=== PATIENT | male | born 1995 | race American Indian/Alaskan Native ===

== ENCOUNTER 2016-10-17 06:07 | Emergency (ER) | payer MEDICAID ==
[2016-10-17 06:44] VITALS: BP 141/91
[2016-10-17 06:57] LABS: Basophils % (Auto) 0.4 % (0.0-1.8); Eosinophils % (Auto) 1.1 % (0.0-4.3); Hematocrit 42.5 % (35.5-45.6); Hemoglobin 13.9 gm/dl (11.8-15.2); Mean Corpuscular HGB Conc 33 % (32-34); Mean Corpuscular Hemoglobin 29 pg (28-32); Mean Corpuscular Volume 89 fl (84-94); Platelet Count 205 K/mm3 (140-440); Red Blood Count 4.79 M/mm3 (3.65-5.03); Red Cell Distribution Width 12.7 % (13.2-15.2); White Blood Count 6.9 K/mm3 (4.5-11.0)
[2016-10-17 07:09] LABS: Urine Drugs of Abuse Note Disclamer
[2016-10-17 07:13] LABS: Anion Gap 19 mmol/L; BUN/Creatinine Ratio 12.22; Blood Urea Nitrogen 11 mg/dL (9-20); Calcium 8.9 mg/dL (8.4-10.2); Carbon Dioxide 25 mmol/L (22-30); Chloride 104.9 mmol/L (98-107); Glucose 83 mg/dL (75-100); Potassium 4.3 mmol/L (3.6-5.0); Sodium 145 mmol/L (137-145)
[2016-10-17 07:39] LABS: Bilirubin,Urine NEG (Negative); Blood,Urine NEG (Negative); Ketones,Urine TR mg/dL (Negative); Leukocyte Esterase,Urine NEG (Negative); Mucus,Urine FEW /HPF; Nitrite,Urine NEG (Negative); Protein,Urine <15 mg/dL mg/dL (Negative); WBC,Urine < 1.0 /HPF (0.0-6.0)
== END 2016-10-17 08:15 | disposition left against medical advice (07) ==
LOC: EEVIPCON 06:07 → ED 06:07
DX: M25.562 Pain in left knee (principal); Z00.8 Encounter for other general examination; F17.200 Nicotine dependence, unspecified, uncomplicated; Z88.8 Allergy status to other drugs, medicaments and biological substances; Z53.21 Procedure and treatment not carried out due to patient leaving prior to being seen by health care provider
CPT/HCPCS: 36415; 80048; 80307; 81001; 85025; G0480; 80320

== ENCOUNTER 2016-10-18 00:34 | Emergency (ER) | payer MEDICAID ==
[2016-10-18 01:37] LABS: Basophils % (Auto) 0.4 % (0.0-1.8); Eosinophils % (Auto) 1.6 % (0.0-4.3); Hematocrit 41.4 % (35.5-45.6); Hemoglobin 13.6 gm/dl (11.8-15.2); Mean Corpuscular HGB Conc 33 % (32-34); Mean Corpuscular Hemoglobin 29 pg (28-32); Mean Corpuscular Volume 89 fl (84-94); Platelet Count 192 K/mm3 (140-440); Red Blood Count 4.68 M/mm3 (3.65-5.03); Red Cell Distribution Width 12.5 % (13.2-15.2); White Blood Count 7.4 K/mm3 (4.5-11.0)
[2016-10-18 01:46] LABS: Anion Gap 16 mmol/L; BUN/Creatinine Ratio 16.25; Blood Urea Nitrogen 13 mg/dL (9-20); Calcium 8.7 mg/dL (8.4-10.2); Carbon Dioxide 25 mmol/L (22-30); Chloride 106.4 mmol/L (98-107); Glucose 94 mg/dL (75-100); Sodium 143 mmol/L (137-145)
[2016-10-18 02:06] VITALS: BP 133/85
--- NOTE | 2016-10-22 07:05 | ED Elopement Review ---
ED Pt Elopement review - Results review Lab results: Laboratory Tests 10/18/16 10/18/16 10/18/16 01:16 01:16 01:16 WBC 7.4 RBC 4.68 Hgb 13.6 Hct 41.4 MCV 89 MCH 29 MCHC 33 RDW 12.5 L Plt Count 192 Lymph % (Auto) 22.9 [place] % (Auto) 15.7 H Eos % (Auto) 1.6 Baso % (Auto) 0.4 Lymph # 1.7 [place] # 1.2 H Eos # 0.1 Baso # 0.0 Seg Neutrophils % 59.4 Seg Neutrophils # 4.4 Sodium 143 Potassium 4.0 Chloride 106.4 Carbon Dioxide 25 Anion Gap 16 BUN 13 Creatinine 0.8 Estimated GFR > 60 BUN/Creatinine Ratio 16.25 Glucose 94 Calcium 8.7 Plasma/Serum Alcohol < 0.01 - Call Back decision Pt Call Back Decision: No action required
== END 2016-10-18 19:00 | disposition left against medical advice (07) ==
LOC: ED 00:34
DX: F29 Unspecified psychosis not due to a substance or known physiological condition (principal); Z53.21 Procedure and treatment not carried out due to patient leaving prior to being seen by health care provider
CPT/HCPCS: 36415; 80048; 85025; G0480; 80320

== ENCOUNTER 2016-10-24 02:54 | Emergency (ER) | payer MEDICAID ==
[2016-10-24 04:02] VITALS: BP 144/90
[2016-10-24 04:48] LABS: Basophils % (Auto) 0.4 % (0.0-1.8); Eosinophils % (Auto) 2.6 % (0.0-4.3); Hematocrit 43.1 % (35.5-45.6); Mean Corpuscular HGB Conc 33 % (32-34); Mean Corpuscular Hemoglobin 29 pg (28-32); Mean Corpuscular Volume 90 fl (84-94); Platelet Count 245 K/mm3 (140-440); Red Blood Count 4.81 M/mm3 (3.65-5.03); Red Cell Distribution Width 13.2 % (13.2-15.2); White Blood Count 6.6 K/mm3 (4.5-11.0)
[2016-10-24 04:49] LABS: Anion Gap 19 mmol/L; BUN/Creatinine Ratio 17.14; Blood Urea Nitrogen 12 mg/dL (9-20); Calcium 9.2 mg/dL (8.4-10.2); Carbon Dioxide 23 mmol/L (22-30); Chloride 103.5 mmol/L (98-107); Glucose 88 mg/dL (75-100); Potassium 3.8 mmol/L (3.6-5.0); Sodium 142 mmol/L (137-145)
--- NOTE | 2016-10-29 19:33 | ED Elopement Review ---
ED Pt Elopement review - Results review Lab results: Laboratory Tests 10/24/16 10/24/16 10/24/16 04:14 04:14 04:14 WBC 6.6 RBC 4.81 Hgb 14.0 Hct 43.1 MCV 90 MCH 29 MCHC 33 RDW 13.2 Plt Count 245 Lymph % (Auto) 26.4 [place] % (Auto) 11.6 H Eos % (Auto) 2.6 Baso % (Auto) 0.4 Lymph # 1.8 [place] # 0.8 Eos # 0.2 Baso # 0.0 Seg Neutrophils % 59.0 Seg Neutrophils # 3.9 Sodium 142 Potassium 3.8 Chloride 103.5 Carbon Dioxide 23 Anion Gap 19 BUN 12 Creatinine 0.7 L Estimated GFR > 60 BUN/Creatinine Ratio 17.14 Glucose 88 Calcium 9.2 Plasma/Serum Alcohol < 0.01 - Call Back decision Pt Call Back Decision: No action required
== END 2016-10-24 04:15 | disposition left against medical advice (07) ==
LOC: ED 02:54
DX: R51 Headache (principal); Z53.21 Procedure and treatment not carried out due to patient leaving prior to being seen by health care provider
CPT/HCPCS: 36415; 80048; 85025; G0480; 80320

== ENCOUNTER 2016-10-29 16:57 | Emergency (ER) | payer MEDICAID ==
[2016-10-29 18:16] LABS: Basophils % (Auto) 0.4 % (0.0-1.8); Eosinophils % (Auto) 2.7 % (0.0-4.3); Hematocrit 42.3 % (35.5-45.6); Hemoglobin 13.9 gm/dl (11.8-15.2); Mean Corpuscular HGB Conc 33 % (32-34); Mean Corpuscular Hemoglobin 30 pg (28-32); Mean Corpuscular Volume 91 fl (84-94); Platelet Count 244 K/mm3 (140-440); Red Blood Count 4.64 M/mm3 (3.65-5.03); Red Cell Distribution Width 13.2 % (13.2-15.2); White Blood Count 7.3 K/mm3 (4.5-11.0)
[2016-10-29 18:17] LABS: Urine Drugs of Abuse Note Disclamer
[2016-10-29 18:32] LABS: Bilirubin,Urine NEG (Negative); Blood,Urine NEG (Negative); Ketones,Urine NEG (Negative); Leukocyte Esterase,Urine NEG (Negative); Mucus,Urine FEW /HPF; Nitrite,Urine NEG (Negative); Protein,Urine <15 mg/dL mg/dL (Negative); Urobilinogen,Urine < 2.0 mg/dL (<2.0); WBC,Urine < 1.0 /HPF (0.0-6.0)
[2016-10-29 18:33] LABS: Anion Gap 18 mmol/L; BUN/Creatinine Ratio 13.75; Blood Urea Nitrogen 11 mg/dL (9-20); Calcium 9.3 mg/dL (8.4-10.2); Carbon Dioxide 25 mmol/L (22-30); Chloride 101.2 mmol/L (98-107); Glucose 124 mg/dL (75-100); Potassium 3.8 mmol/L (3.6-5.0); Sodium 140 mmol/L (137-145)
--- NOTE | 2016-10-29 23:52 | Emergency Department Report ---
ED General Adult HPI - General Chief complaint: Headache Stated complaint: ELSA EVAL Time Seen by Provider: 10/29/16 23:44 Source: patient, RN notes reviewed, old records reviewed Mode of arrival: Ambulatory Limitations: No Limitations - History of Present Illness Initial comments: This is a 21-year-old male. He is previously known to me. As per triage documentation, the patient has been complaining of a headache all day, denies vomiting, denies fever, initially noted to be awake, calm, ambulatory, answering questions. His caregiver indicated that the patient has been sexually aggressive, masturbating in front of every one, running to the committed a naked, touching staff and other residents. No exacerbating factors or relieving factors have been described. As per the ER nurse documentation: Pt ambulated to ER H-25 from waiting room c/o headache for 2 days, no c/o of N/V , AAOx4, asking for something to eat, informed him he would have to wait till dr evaluates him. When I go to evaluate the patient he is sleeping. He does not answer questions. When I lift up his left arm, he allows it to drop down slowly, avoiding contact with head and face. There is no indication of homicidality or suicide. -: unknown Severity scale (0 -10): 6 Quality: other (per hpi) Consistency: other (per hpi) Improves with: other (per hpi) Worsens with: other (per hpi) Associated Symptoms: headaches - Related Data Home Medications Medication Instructions Recorded Confirmed Last Taken levETIRAcetam [Keppra TAB] 500 mg PO BID 10/30/16 10/30/16 1 Day Ago 500 Allergies Allergy/AdvReac Type Severity Reaction Status Date / Time haloperidol [From Haldol] Allergy Unknown Verified 10/29/16 17:15 haloperidol lactate Allergy Unknown Verified 10/29/16 17:15 [From Haldol] ED Review of Systems ROS: Stated complaint: MH EVAL Other details as noted in HPI Comment: per hpi ED Past Medical Hx - Past Medical History Hx Seizures: Yes Hx Psychiatric Treatment: Yes (bipolar /SCHIZOPHRENIA / ADHD) - Surgical History Past Surgical History?: No - Social History Smoking Status: Never Smoker Substance Use Type: None - Medications Home Medications: Home Medications Medication Instructions Recorded Confirmed Last Taken Type levETIRAcetam [Keppra TAB] 500 mg PO BID 10/30/16 10/30/16 1 Day Ago History 500 ED Physical Exam - General General appearance: in no apparent distress - Head Head exam: Present: atraumatic, normocephalic - Eye Eye exam: Present: normal appearance, EOMI - ENT ENT exam: Present: normal exam, normal orophraynx, mucous membranes moist, normal external ear exam - Neck Neck exam: Present: normal inspection, full ROM. Absent: tenderness, meningismus - Respiratory Respiratory exam: Present: normal lung sounds bilaterally. Absent: respiratory distress, wheezes, rales, rhonchi, stridor, chest wall tenderness, accessory muscle use, decreased breath sounds, prolonged expiratory - Cardiovascular Cardiovascular Exam: Present: regular rate, normal rhythm, normal heart sounds. Absent: bradycardia, tachycardia, irregular rhythm, systolic murmur, diastolic murmur, rubs, gallop - GI/Abdominal GI/Abdominal exam: Present: soft, normal bowel sounds. Absent: distended, tenderness, guarding, rebound, rigid, pulsatile mass - Rectal Rectal exam: Present: deferred - Extremities Exam Extremities exam: Present: normal inspection, full ROM, normal capillary refill , other (no clonus. compartments are soft). Absent: pedal edema, joint swelling , calf tenderness - Back Exam Back exam: Present: normal inspection. Absent: tenderness, CVA tenderness (R), CVA tenderness (L), muscle spasm, paraspinal tenderness, vertebral tenderness - Neurological Exam Neurological exam: Present: other (patient is noted by nursing staff to be walking, awake, alert, oriented) - Psychiatric Psychiatric exam: Present: flat affect - Skin Skin exam: Present: warm, dry, intact, normal color. Absent: rash ED Course Vital Signs 10/29/16 10/29/16 10/29/16 17:19 22:23 22:24 Temperature 98.7 F Pulse Rate 64 72 Respiratory 15 18 18 Rate Blood Pressure 114/69 Blood Pressure 122/74 [Left] O2 Sat by Pulse 100 98 Oximetry 10/30/16 00:00 Temperature 99.4 F Pulse Rate 70 Respiratory 18 Rate Blood Pressure Blood Pressure 123/68 [Left] O2 Sat by Pulse 99 Oximetry - Reevaluation(s) Reevaluation #1: 10/30/16 00:37 differential diagnosis: Migraine headache, tension headache, cluster headache, mood disorder, factitious disorder assessment and plan: 21-year-old male with reported complaint of headache. He is afebrile with reassuring vital signs. When I evaluate the patient, he will not answer my questions. He localizes painful stimuli. He is protecting his airway. I suspect that the patient is feigning somnolence. His laboratory studies were unremarkable. A noncontrast CT scan of the brain is unremarkable. No indication for homicidality or suicidality. Given hypersexual behavior, I have contacted mental health/crisis to assist in placement. Reevaluation #2: 10/30/16 01:[address] scan of the brain is negative. The patient is noted to be moving 4 extremities. He still will not answer my questions, and he will not answer the questions of the mental health counselor. I think that this is mostly behavioral, especially given what is documented in triage and by the nurse, however given his hypersexual behavior, there may be a psychotic component. At this point in time, the patient will be placed on a 1013. The crisis counselor is informed. I don't believe there is any medical contraindication to psychiatric admission/ evaluation. However, if psychiatry feels the patient can be safely discharged from a self-care perspective/psychiatry standpoint, and this can be coordinated with his outpatient detention, I think this would be reasonable plan as well. Reevaluation #3: 10/30/16 05:[address] scan of the brain is negative. At one point I did witness the patient walking up and go to the bathroom. I went to go talk to him. He denied headache, neck pain, chest pain, abdominal pain and shortness of breath me. He asked to eat. He then went to sleep. He would not answer any other questions. ED Medical Decision Making - Lab Data Result diagrams: 10/29/16 18:03 10/29/16 18:03 Vital Signs 10/29/16 10/29/16 10/29/16 17:19 22:23 22:24 Temperature 98.7 F Pulse Rate 64 72 Respiratory 15 18 18 Rate Blood Pressure 114/69 Blood Pressure 122/74 [Left] O2 Sat by Pulse 100 98 Oximetry 10/30/16 00:00 Temperature 99.4 F Pulse Rate 70 Respiratory 18 Rate Blood Pressure Blood Pressure 123/68 [Left] O2 Sat by Pulse 99 Oximetry Labs 10/29/16 10/29/16 10/29/16 18:03 18:03 18:03 WBC 7.3 RBC 4.64 Hgb 13.9 Hct 42.3 MCV 91 MCH 30 MCHC 33 RDW 13.2 Plt Count 244 Lymph % (Auto) 19.6 [place] % (Auto) 7.1 Eos % (Auto) 2.7 Baso % (Auto) 0.4 Lymph # 1.4 [place] # 0.5 Eos # 0.2 Baso # 0.0 Seg Neutrophils % 70.2 H Seg Neutrophils # 5.1 Carboxyhemoglobin Sodium 140 Potassium 3.8 Chloride 101.2 Carbon Dioxide 25 Anion Gap 18 BUN 11 Creatinine 0.8 Estimated GFR > 60 BUN/Creatinine Ratio 13.75 Glucose 124 H Calcium 9.3 Urine Color Urine Turbidity Urine pH Ur Specific [place] Urine Protein Urine Glucose (UA) Urine Ketones Urine Blood Urine Nitrite Urine Bilirubin Urine Urobilinogen Ur Leukocyte Esterase Urine WBC (Auto) Urine RBC (Auto) Urine Mucus Urine Opiates Screen Urine Methadone Screen Ur Barbiturates Screen Ur Phencyclidine Scrn Ur Amphetamines Screen U Benzodiazepines Scrn Urine Cocaine Screen U Marijuana (THC) Screen Drugs of Abuse Note Plasma/Serum Alcohol < 0.01 10/29/16 10/29/16 10/30/16 18:11 18:11 00:04 WBC RBC Hgb Hct MCV MCH MCHC RDW Plt Count Lymph % (Auto) [place] % (Auto) Eos % (Auto) Baso % (Auto) Lymph # [place] # Eos # Baso # Seg Neutrophils % Seg Neutrophils # Carboxyhemoglobin 4.1 Sodium Potassium Chloride Carbon Dioxide Anion Gap BUN Creatinine Estimated GFR BUN/Creatinine Ratio Glucose Calcium Urine Color Yellow Urine Turbidity Clear Urine pH 6.0 Ur Specific [place] 1.026 Urine Protein <15 mg/dl Urine Glucose (UA) Neg Urine Ketones Neg Urine Blood Neg Urine Nitrite Neg Urine Bilirubin Neg Urine Urobilinogen < 2.0 Ur Leukocyte Esterase Neg Urine WBC (Auto) < 1.0 Urine RBC (Auto) 11.0 Urine Mucus Few Urine Opiates Screen Presumptive negative Urine Methadone Screen Presumptive negative Ur Barbiturates Screen Presumptive positive Ur Phencyclidine Scrn Presumptive negative Ur Amphetamines Screen Presumptive negative U Benzodiazepines Scrn Presumptive negative Urine Cocaine Screen Presumptive negative U Marijuana (THC) Screen Presumptive positive Drugs of Abuse Note Disclamer Plasma/Serum Alcohol - EKG Data -: EKG Interpreted by Ga Rate: normal - EKG Data When compared to previous EKG there are: no significant change Interpretation: no acute changes, normal EKG 10/30/16 00:38 Normal sinus, 67 beats per minute, normal intervals, normal axis, normal neurologically consistent with STEMI, motion artifact noted, appears unchanged when compared to prior EKG from 2010. - Radiology Data Radiology results: report reviewed Noncontrast CT scan of the brain is negative Critical care attestation.: If time is entered above; I have spent that time in minutes in the direct care of this critically ill patient, excluding procedure time. ED Disposition Condition: Stable Referrals: PRIMARY CARE, [Primary Care Provider] - 3-5 Days
--- NOTE | 2016-10-30 02:15 | Cat Scan Report ---
FINAL REPORT PROCEDURE: CT HEAD/BRAIN WO CON TECHNIQUE: Computerized tomography of the head was performed without contrast material. HISTORY: headache COMPARISON: No prior studies are available for comparison. FINDINGS: Skull and scalp: Normal. Paranasal sinuses: Normal. Ventricles and subarachnoid spaces: Normal. Cerebrum: No evidence of hemorrhage, acute infarction or mass . Cerebellum and brainstem: No evidence of hemorrhage, acute infarction or mass. Vasculature: Normal. Comments: None. IMPRESSION: Normal Examination
[2016-10-30 10:29] VITALS: BP 140/80
--- NOTE | 2016-10-30 11:24 | Consultation ---
History of Present Illness - Reason for Consult Consult date: 10/30/16 Reason for consult: Mental Health Evaluation Requesting physician: RAFAEL GOLD - Chief Complaint Chief complaint: I don't know" - History of Present Psychiatric Illness This is a 21-year-old AA male presenting to [facility] for sexually aggressive behavior, masturbating, running around naked, and touching staff/residents at his [facility]. Today patient is calm with a tangential thought process. He stated that "they say I was naked" at the [facility], he denies that occurrence. He would stare at me when asked to elaborate more about what happened at [facility]. When he would respond to my questions, he stated "I don' t know" multiple times. He did state that he take Risperdal and Keppra currently. No gestures of SI/HI's and AVH's. Per staff, no distress or inappropriate behavior overnight. Patient stated he ran out of medications. Medications and Allergies Allergies Allergy/AdvReac Type Severity Reaction Status Date / Time haloperidol [From Haldol] Allergy Unknown Verified 10/29/16 17:15 haloperidol lactate Allergy Unknown Verified 10/29/16 17:15 [From Haldol] Home Medications Medication Instructions Recorded Confirmed Last Taken Type levETIRAcetam [Keppra TAB] 500 mg PO BID 10/30/16 10/30/16 1 Day Ago History 500 Past psychiatric history - Past Medical History Past Medical History: other (unable to obtain) Past Surgical History: Other (unable to obtain) - past Psychiatric treatment and history Psych: Bipolar, Schizophrenia psychiatric treatment history: "[facility]" for inpatient. Denies a fam hx of psy. Mental Status Exam - Vital signs Last Vital Signs Temp 98.3 F 10/30/16 10:28 Pulse 59 L 10/30/16 10:28 Resp 18 10/30/16 10:28 BP 140/80 10/30/16 10:28 Pulse Ox 100 10/30/16 10:28 - Exam Narrative exam: ROS (+) psychosis, (+) disorganized MSE: Appearance: calm, cooperative Behavior: good eye contact Speech: regular rate and tone Mood: "I don't know" Affect: mood congruent Thought Process: tangential Thought Content: denies SI/HI's and AVH's Motor Activity: ambulatory Cognition: a/o x2 Insight: poor Judgment: poor Results Result Diagrams: 10/29/16 18:03 10/29/16 18:03 Abnormal lab results 10/29/16 10/29/16 10/30/16 Range/Units 18:03 18:03 00:04 Seg Neutrophils % 70.2 H (40.0-70.0) % Glucose 124 H (75-100) mg/dL Total Creatine Kinase 522 H (55-170) units/L Salicylates (2.8-20.0) mg/dL 10/30/16 Range/Units 00:04 Seg Neutrophils % (40.0-70.0) % Glucose (75-100) mg/dL Total Creatine Kinase (55-170) units/L Salicylates < 0.3 L (2.8-20.0) mg/dL All other labs normal. Assessment and Plan Assessment and plan: Impression: Unspecified Psychotic DO. This is a 21-year-old AA male presenting to [facility] for sexually aggressive behavior, masturbating, running around naked, and touching staff/residents at his [facility]. Today patient is calm but with a tangential thought process. He stated that "they say I was naked" at the [facility], he denies that occurrence. He would stare at me when asked to elaborate more about what happened at [facility]. Patient positive for barbiturates and marijuana. DD: Schizophrenia, R/O bipolar Recommendation/Plan: Continue 1013 with placement to inpatient psy services. Start Risperdal 1 mg PO HS for psychosis and Cogentin 0.5 mg PO HS for EPS prevention.
[2016-10-30] MEDS ORDERED: COGENTIN PO SCH (22:00)
[2016-10-30] MEDS ORDERED: RisperDAL PO SCH (22:00)
== END 2016-10-30 21:16 ==
LOC: ED 16:57
DX: R51 Headache (principal); F52.8 Other sexual dysfunction not due to a substance or known physiological condition; F20.9 Schizophrenia, unspecified; F31.9 Bipolar disorder, unspecified; F90.9 Attention-deficit hyperactivity disorder, unspecified type; Z88.8 Allergy status to other drugs, medicaments and biological substances
CPT/HCPCS: 36415; 70450; 80048; 80307; 81001; 82375; 82550; 83735; 84443; 85025; 93005; 93010; 99285; G0480; 80320

== ENCOUNTER 2017-05-13 18:27 | Emergency (ER) | payer MEDICAID | END 2017-05-13 18:50 | disposition left against medical advice (07) | LOC: ED 18:27 → EEVIPCON 18:27 → ED 18:50 | DX: Z53.21 Procedure and treatment not carried out due to patient leaving prior to being seen by health care provider (principal) ==

== ENCOUNTER 2017-05-14 03:41 | Emergency (ER) | payer MEDICAID ==
[2017-05-14 04:57] LABS: Basophils % (Auto) 0.3 % (0.0-1.8); Eosinophils % (Auto) 0.9 % (0.0-4.3); Hematocrit 43.1 % (35.5-45.6); Hemoglobin 14.6 gm/dl (11.8-15.2); Mean Corpuscular HGB Conc 34 % (32-34); Mean Corpuscular Hemoglobin 30 pg (28-32); Mean Corpuscular Volume 89 fl (84-94); Platelet Count 215 K/mm3 (140-440); Red Blood Count 4.84 M/mm3 (3.65-5.03); Red Cell Distribution Width 12.6 % (13.2-15.2); White Blood Count 7.1 K/mm3 (4.5-11.0)
[2017-05-14 05:01] LABS: Urine Drugs of Abuse Note Disclamer
[2017-05-14 05:08] LABS: Bilirubin,Urine NEG (Negative); Blood,Urine NEG (Negative); Ketones,Urine 20 mg/dL (Negative); Leukocyte Esterase,Urine NEG (Negative); Nitrite,Urine NEG (Negative); Protein,Urine <15 mg/dL mg/dL (Negative); Urobilinogen,Urine < 2.0 mg/dL (<2.0)
[2017-05-14 05:20] LABS: Anion Gap 23 mmol/L; BUN/Creatinine Ratio 10; Blood Urea Nitrogen 8 mg/dL (9-20); Calcium 9.3 mg/dL (8.4-10.2); Carbon Dioxide 22 mmol/L (22-30); Chloride 100.4 mmol/L (98-107); Glucose 86 mg/dL (75-100); Sodium 141 mmol/L (137-145)
[2017-05-14] MEDS ORDERED: ATIVAN IM PRN (06:42)
--- NOTE | 2017-05-14 06:42 | Emergency Department Report ---
ED General Adult HPI - General Chief complaint: Psych Stated complaint: PSYCH, NEEDS MEDICATION Time Seen by Provider: 05/14/17 06:35 Source: patient, RN notes reviewed, old records reviewed Mode of arrival: Ambulatory Limitations: Other (patient is disorganized. Patient is laughing uncontrollably.) - History of Present Illness Initial comments: This is a 22-year-old male whom I have evaluated in the past. Patient has a past history of unspecified psychotic disorder, presenting to the ER today with a triage complaint of "patient very anxious, repeats asked questions then burst out and left her after every question and states she has been off of prescriptions for 2-3 months denies homicidal and suicidal ideations , presented night and refused triage, return this morning." The patient cannot further elaborate on his symptoms. He cannot describe exacerbating or relieving factors. He denies headache, neck pain, chest pain, abdominal pain, shortness of breath, the patient will not answer questions about access to guns or firearms. -: unknown Consistency: constant Improves with: none Worsens with: none Associated Symptoms: denies other symptoms - Related Data Home Medications Medication Instructions Recorded Confirmed Last Taken levETIRAcetam [Keppra TAB] 500 mg PO BID 10/30/16 10/30/16 1 Day Ago ~10/29/16 500 Allergies Allergy/AdvReac Type Severity Reaction Status Date / Time haloperidol [From Haldol] Allergy Unknown Verified 10/29/16 17:15 haloperidol lactate Allergy Unknown Verified 10/29/16 17:15 [From Haldol] ED Review of Systems ROS: Stated complaint: PSYCH, NEEDS MEDICATION Other details as noted in HPI Comment: Unobtainable due to pts medical conditions Constitutional: denies: fever Cardiovascular: denies: chest pain Gastrointestinal: denies: abdominal pain Musculoskeletal: denies: back pain Neurological: denies: weakness Psychiatric: as per HPI ED Past Medical Hx - Past Medical History Previous Medical History?: Yes Hx Seizures: Yes Hx Psychiatric Treatment: Yes (bipolar /SCHIZOPHRENIA / ADHD) - Surgical History Past Surgical History?: No - Social History Smoking Status: Current Every Day Smoker Substance Use Type: Alcohol, Cocaine, Marijuana - Medications Home Medications: Home Medications Medication Instructions Recorded Confirmed Last Taken Type levETIRAcetam [Keppra TAB] 500 mg PO BID 10/30/16 10/30/16 1 Day Ago History ~10/29/16 500 ED Physical Exam - General Limitations: Other (patient laughing, poor historian) General appearance: alert, in no apparent distress - Head Head exam: Present: atraumatic, normocephalic - Eye Eye exam: Present: normal appearance, EOMI, other (visual acuity intact to finger counting, color perception, reading at a close distance). Absent: nystagmus - ENT ENT exam: Present: normal exam, normal orophraynx, mucous membranes moist, normal external ear exam - Neck Neck exam: Present: normal inspection, full ROM - Respiratory Respiratory exam: Present: normal lung sounds bilaterally. Absent: respiratory distress - Cardiovascular Cardiovascular Exam: Present: regular rate, normal rhythm, normal heart sounds. Absent: systolic murmur, diastolic murmur, rubs, gallop - GI/Abdominal GI/Abdominal exam: Present: soft, normal bowel sounds. Absent: distended, tenderness, guarding, rebound, rigid, pulsatile mass - Rectal Rectal exam: Present: deferred - Extremities Exam Extremities exam: Present: normal inspection, full ROM. Absent: pedal edema, calf tenderness - Back Exam Back exam: Present: normal inspection, full ROM. Absent: paraspinal tenderness , vertebral tenderness - Neurological Exam Neurological exam: Present: alert, CN II-XII intact, normal gait, other ( Extraocular movements intact. Tongue midline. No facial droop. Facial sensation intact to light touch in the V1, V2, V3 distribution bilaterally. 5 and 5 strength in 4 extremities.. Sensation is intact to light touch in 4 extremities.). Absent: motor sensory deficit - Psychiatric Psychiatric exam: Present: normal affect, agitated. Absent: homicidal ideation - Skin Skin exam: Present: warm, dry, intact, normal color. Absent: rash ED Course Vital Signs 05/14/17 03:46 Temperature 97.7 F Pulse Rate 92 H Respiratory 18 Rate Blood Pressure 148/91 O2 Sat by Pulse 98 Oximetry - Reevaluation(s) Reevaluation #1: 05/14/17 08:41 Differential diagnosis, including but not limited to: Psychosis, myositis, mood disorder, nonspecific drug abuse Assessment and plan: 22-year-old male who is disorganized, laughing, clearly unable to take care of himself, appears to be psychotic. He requires a 1013 for this reason. No indication of trauma. A noncontrast CT scan of the brain is negative. Patient is placed on a 1013. Laboratory studies so far unremarkable with the exception of elevated creatinine kinase. This will decrease with oral hydration and IV fluids. He does not meet the definition criteria of rhabdomyolysis. Patient attempted to run away, he did not respond to chemical therapy, he did not respond to verbal de-escalation techniques or Show of force. Therefore, for his safety and for staff safety he requires seclusion. He will also be given Geodon. Reevaluation #2: 05/14/17 09:15 Serum toxicology studies unremarkable. At this point in time, there does not appear to be an immediate medical contraindication to psychiatric admission/ evaluation and consultation. The crisis team has been informed. ED Medical Decision Making - Lab Data Result diagrams: 05/14/17 04:36 05/14/17 04:36 Vital Signs 05/14/17 03:46 Temperature 97.7 F Pulse Rate 92 H Respiratory 18 Rate Blood Pressure 148/91 O2 Sat by Pulse 98 Oximetry Lab Results 05/14/17 05/14/17 05/14/17 Range/Units 04:36 04:36 04:36 WBC 7.1 (4.5-11.0) K/mm3 RBC 4.84 (3.65-5.03) M/mm3 Hgb 14.6 (11.8-15.2) gm/dl Hct 43.1 (35.5-45.6) % MCV 89 (84-94) fl MCH 30 (28-32) pg MCHC 34 (32-34) % RDW 12.6 L (13.2-15.2) % Plt Count 215 (140-440) K/mm3 Lymph % (Auto) 20.4 (13.4-35.0) % [place] % (Auto) 10.7 H (0.0-7.3) % Eos % (Auto) 0.9 (0.0-4.3) % Baso % (Auto) 0.3 (0.0-1.8) % Lymph # 1.4 (1.2-5.4) K/mm3 [place] # 0.8 (0.0-0.8) K/mm3 Eos # 0.1 (0.0-0.4) K/mm3 Baso # 0.0 (0.0-0.1) K/mm3 Seg Neutrophils % 67.7 (40.0-70.0) % Seg Neutrophils # 4.8 (1.8-7.7) K/mm3 Sodium 141 (137-145) mmol/L Potassium 4.0 (3.6-5.0) mmol/L Chloride 100.4 (98-107) mmol/L Carbon Dioxide 22 (22-30) mmol/L Anion Gap 23 mmol/L BUN 8 L (9-20) mg/dL Creatinine 0.8 (0.8-1.5) mg/dL Estimated GFR > 60 ml/min BUN/Creatinine Ratio 10 % Glucose 86 (75-100) mg/dL Calcium 9.3 (8.4-10.2) mg/dL Total Creatine Kinase (55-170) units/L Urine Color (Yellow) Urine Turbidity (Clear) Urine pH (5.0-7.0) Ur Specific [place] (1.003-1.030) Urine Protein (Negative) mg/dL Urine Glucose (UA) (Negative) mg/dL Urine Ketones (Negative) mg/dL Urine Blood (Negative) Urine Nitrite (Negative) Urine Bilirubin (Negative) Urine Urobilinogen (<2.0) mg/dL Ur Leukocyte Esterase (Negative) Urine WBC (Auto) (0.0-6.0) /HPF Urine RBC (Auto) (0.0-6.0) /HPF Urine Opiates Screen Urine Methadone Screen Ur Barbiturates Screen Ur Phencyclidine Scrn Ur Amphetamines Screen U Benzodiazepines Scrn Urine Cocaine Screen U Marijuana (THC) Screen Drugs of Abuse Note Plasma/Serum Alcohol < 0.01 (0-0.07) gm% 05/14/17 05/14/17 05/14/17 Range/Units 04:36 04:55 04:55 WBC (4.5-11.0) K/mm3 RBC (3.65-5.03) M/mm3 Hgb (11.8-15.2) gm/dl Hct (35.5-45.6) % MCV (84-94) fl MCH (28-32) pg MCHC (32-34) % RDW (13.2-15.2) % Plt Count (140-440) K/mm3 Lymph % (Auto) (13.4-35.0) % [place] % (Auto) (0.0-7.3) % Eos % (Auto) (0.0-4.3) % Baso % (Auto) (0.0-1.8) % Lymph # (1.2-5.4) K/mm3 [place] # (0.0-0.8) K/mm3 Eos # (0.0-0.4) K/mm3 Baso # (0.0-0.1) K/mm3 Seg Neutrophils % (40.0-70.0) % Seg Neutrophils # (1.8-7.7) K/mm3 Sodium (137-145) mmol/L Potassium (3.6-5.0) mmol/L Chloride (98-107) mmol/L Carbon Dioxide (22-30) mmol/L Anion Gap mmol/L BUN (9-20) mg/dL Creatinine (0.8-1.5) mg/dL Estimated GFR ml/min BUN/Creatinine Ratio % Glucose (75-100) mg/dL Calcium (8.4-10.2) mg/dL Total Creatine Kinase 1446 H (55-170) units/L Urine Color Yellow (Yellow) Urine Turbidity Clear (Clear) Urine pH 5.0 (5.0-7.0) Ur Specific [place] 1.024 (1.003-1.030) Urine Protein <15 mg/dl (Negative) mg/dL Urine Glucose (UA) Neg (Negative) mg/dL Urine Ketones 20 (Negative) mg/dL Urine Blood Neg (Negative) Urine Nitrite Neg (Negative) Urine Bilirubin Neg (Negative) Urine Urobilinogen < 2.0 (<2.0) mg/dL Ur Leukocyte Esterase Neg (Negative) Urine WBC (Auto) 1.0 (0.0-6.0) /HPF Urine RBC (Auto) 1.0 (0.0-6.0) /HPF Urine Opiates Screen Presumptive negative Urine Methadone Screen Presumptive negative Ur Barbiturates Screen Presumptive negative Ur Phencyclidine Scrn Presumptive negative Ur Amphetamines Screen Presumptive negative U Benzodiazepines Scrn Presumptive negative Urine Cocaine Screen Presumptive negative U Marijuana (THC) Screen Presumptive negative Drugs of Abuse Note Disclamer Plasma/Serum Alcohol (0-0.07) gm% Critical care attestation.: If time is entered above; I have spent that time in minutes in the direct care of this critically ill patient, excluding procedure time. ED Disposition Clinical Impression: Mood disorder Disposition: [id number]/TX-[id number] PSY HOSP/PSY UNIT Is pt being admited?: No Does the pt Need Aspirin: No Condition: Good Referrals: PRIMARY CARE, [Primary Care Provider] - 3-5 Days
--- NOTE | 2017-05-14 07:33 | Cat Scan Report ---
FINAL REPORT EXAM: CT HEAD/BRAIN WO CON HISTORY: psych ams TECHNIQUE: Routine axial imaging was obtained of the brain without IV contrast. Comparison is made to the study of 10/29/2016. FINDINGS: There are no attenuation abnormalities. The ventricular system is appropriate in size and is symmetric. The visualized sinuses are clear. The calvarium appears intact. IMPRESSION: Normal exam.
[2017-05-14] MEDS ORDERED: GEODON IM ONE (08:38)
[2017-05-14] MEDS ORDERED: NACL 0.9% 1000 ML 2,000 ML IV ONE (08:38)
[2017-05-15] MEDS: KEPPRA PO SCH ×2 (10:15→22:40)
--- NOTE | 2017-05-15 16:16 | Consultation ---
History of Present Illness - Reason for Consult Consult date: 05/15/17 Reason for consult: psychiatric consult - Chief Complaint Chief complaint: did not speak/sedated - History of Present Psychiatric Illness This is a 22-year-old male on 1012 for psychosis. Per the record: Patient has a past history of unspecified psychotic disorder, presenting to the ER today with a triage complaint of "patient very anxious, repeats asked questions then burst out and left her after every question and states he has been off of prescriptions for 2-3 months denies homicidal and suicidal ideations , presented night and refused triage, return this morning." Attempts by [employer] and physician were unsuccessful. He is sedated. He has 6 documented ER registrations since September 2016. He eloped with 4 of them, including one 2 days ago. His CK is 1446. UDS & ETOH level are negative. Medications and Allergies Allergies Allergy/AdvReac Type Severity Reaction Status Date / Time haloperidol [From Haldol] Allergy Unknown Verified 10/29/16 17:15 haloperidol lactate Allergy Unknown Verified 10/29/16 17:15 [From Haldol] Home Medications Medication Instructions Recorded Confirmed Last Taken Type levETIRAcetam [Keppra TAB] 500 mg PO BID 10/30/16 05/15/17 1 Day Ago History ~10/29/16 500 Active Meds: Active Medications Diphenhydramine HCl (Benadryl) 25 mg PO QHS [facility] Stop: 05/20/17 21:59 Levetiracetam (Keppra) 500 mg PO BID [facility] Stop: 05/20/17 09:59 Last Admin: 05/15/17 10:15 Dose: 500 mg Lorazepam (Ativan) 2 mg IM Q4HR PRN PRN Reason: Agitation Last Admin: 05/14/17 06:45 Dose: 2 mg Olanzapine (Zyprexa) 15 mg PO QHS [facility] Stop: 05/20/17 21:59 Past psychiatric history - Past Medical History Past Medical History: seizures (on Keppra) - past Psychiatric treatment and history Psych: Psychosis psychiatric treatment history: He was seen in the ER in 10/2016 for sexually aggressive behavior, masturbating, running around naked, and touching staff/residents at his care home. Mental Status Exam - Vital signs Last Vital Signs Temp 98.9 F 05/15/17 07:48 Pulse 72 05/15/17 07:48 Resp 16 05/15/17 07:48 BP 117/71 05/15/17 07:48 Pulse Ox 100 05/15/17 07:48 - Exam Narrative exam: unable to obtain thought content, thought process, or perceptual disturbances. Speech: minimal response Motor activity: lethargic Level of consciousness: sedated Interaction: other (sedated) Results Result Diagrams: 05/14/17 04:36 05/14/17 04:36 All other labs normal. Assessment and Plan Assessment and plan: Impression: Unspecified Psychotic DO. This is a 22-year-old AA male presenting to [facility] for psychosis. Per the record-He has a history of sexually aggressive behavior in 10/2016. DD: Schizophrenia, R/O bipolar Recommendation/Plan: Continue 1013 with placement to inpatient psy services. Address hydration, encourage po intake of fluids Avoid two antipsychotics Continue zyprexa 15mg hs and discontinue thorazine. He has a history of adverse reaction to haldol. Continue Ativan 2mg IM PRN q4 hours but use carefully. Sedation may promote immobility.
[2017-05-15] MEDS ORDERED: THORAZINE PO SCH (22:00)
[2017-05-15] MEDS: BENADRYL PO SCH (22:40)
[2017-05-16] MEDS: KEPPRA PO SCH ×2 (11:40→22:05)
--- NOTE | 2017-05-16 17:27 | Progress Note ---
Subjective - Reason for Consult Consult date: 05/16/17 Reason for consult: follow up - Chief Complaint Chief complaint: "I'm tired." Per the record: Patient has a past history of unspecified psychotic disorder, presenting to the ER today with a triage complaint of "patient very anxious, repeats asked questions then burst out and left her after every question and states he has been off of prescriptions for 2-3 months denies homicidal and suicidal ideations , presented night and refused triage, return this morning." He is drowsy. He opened his eyes and answered a few questions. He states he had not slept prior to ER arrival. He otherwise did not provide meaningful information on interview. He took zyprexa 15mg hs last night. He has not had Ativan since 05/14/2017. He has 6 documented ER registrations since September 2016. He eloped with 4 of them, including one 2 days ago. His CK is 1446 on 05/14/2017. UDS & ETOH level are negative. Mental Status Exam - Vital signs Last Vital Signs Temp 97.8 F 05/16/17 11:58 Pulse 82 05/16/17 11:58 Resp 16 05/16/17 11:58 BP 110/72 05/16/17 11:58 Pulse Ox 98 05/16/17 11:58 - Exam Orientation: time, place, person Affect: flat Mood: congruent with affect Thought content: other (he does not endorse nor deny SI/HI) Perceptions: other (unable to assess) Speech: minimal response Motor activity: lethargic Level of consciousness: sedated Sleep Symptoms: Sleepiness Appetite: decreased Interaction: other (he attempted to be cooperative) Assessment and Plan Impression: Unspecified Psychotic DO. This is a 22-year-old AA male presenting to [facility] for psychosis. Per the record-He has a history of sexually aggressive behavior in 10/2016. DD: Schizophrenia, R/O bipolar r/o catatonia Recommendation/Plan: Continue 1013 with placement to inpatient psy services. Address hydration, encourage po intake of fluids Avoid two antipsychotics Continue zyprexa 15mg hs. Continue Ativan 2mg IM PRN q4 hours but use carefully. Sedation may promote immobility. labs ordered to identify other causes of sedation/altered mental status: b12/folate, tsh, rpr, hiv, LFTs, and another CK.
[2017-05-16 18:17] LABS: Alanine Aminotransferase 20 units/L (7-56); Albumin/Globulin Ratio 1.3 %; Alkaline Phosphatase 86 units/L (35-129); Creatine Kinase 623 units/L (55-170)
[2017-05-16 18:19] LABS: Bilirubin,Direct < 0.2 mg/dL (0-0.2); Bilirubin,Indirect 0.2 mg/dL
[2017-05-16 18:33] LABS: HIV-1 Antigen p24 Non React (Non React); HIVR-1/2 Ab Non React (Non React)
[2017-05-16] MEDS: BENADRYL PO SCH (22:05)
[2017-05-17] MEDS: KEPPRA PO SCH ×2 (10:23→22:05)
--- NOTE | 2017-05-17 12:35 | Progress Note ---
Subjective - Reason for Consult Consult date: 05/17/17 Reason for consult: Psychiatry Follow-up - Chief Complaint Chief complaint: "Why me" Patient has a past history of unspecified psychotic disorder, presenting to the ER today with a triage complaint of "patient very anxious, repeats asked questions then burst out and left her after every question and states she has been off of prescriptions for 2-3 months. Today patient is irritable, but cooperative during the assessment. He has a tangential thought process and had to be redirected several time to stay engaged and focus on the questions asked of him. When asked about his residence and family, his answers are not logical. He denies SI/HI's. He was observed eating his breakfast this morning. He did not take his Zyprexa last night. Mental Status Exam - Vital signs Last Vital Signs Temp 98.6 F 05/17/17 09:41 Pulse 61 05/17/17 09:41 Resp 18 05/17/17 09:41 BP 132/62 05/17/17 09:41 Pulse Ox 98 05/16/17 22:00 - Exam Narrative exam: MSE: Appearance: cooperative Behavior: regular eye contact Speech: regular rate and tone Mood: irritated Affect: congruent to mood Thought Process: tangential Thought Content: denies SI/HI's and AVH's Motor Activity: lying in bed Cognition: A/O x3 Insight: variable Judgment: variable Assessment and Plan Impression: Unspecified Psychotic DO. Today patient is irritable, but cooperative during the assessment. CK 623, other labs WNL. Per the record - He has a history of sexually aggressive behavior in 10/2016. DDx: Schizophrenia, R/O Bipolar, R/O Catatonia Recommendation/Plan: Continue 1013 with placement to inpatient psy services. Continue Zyprexa 15 mg PO HS for psychosis. Continue Ativan 2mg IM PRN q4 hours but use carefully. Sedation may promote immobility. l
[2017-05-17] MEDS: BENADRYL PO SCH (22:00)
[2017-05-18] MEDS: KEPPRA PO SCH ×2 (10:59→22:04)
--- NOTE | 2017-05-18 15:12 | Progress Note ---
Subjective - Reason for Consult Consult date: 05/18/17 Reason for consult: Psychiatry Follow-up - Chief Complaint Chief complaint: "I just want to go" Patient has a past history of unspecified psychotic disorder, presenting to the ER today with a triage complaint of "patient very anxious, repeats asked questions then burst out and left her after every question and states she has been off of prescriptions for 2-3 months. Today patient is calm, but evasive during the assessment. He denies SI/HI's. When asked to elaborate more about how he ended up at [facility], he walked away. Per the staff, no behavioral disturbance overnight. Per collateral from Ms Clark at [phone] his payee, she stated that the patient's behavior has been bizarre for several weeks prior to his admission to [facility]. She stated that the [facility] ([phone]) provides outpatient psy services for the patient. She stated that [facility] is in the process of setting up permanent placement for the patient. Mental Status Exam - Vital signs Last Vital Signs Temp 98.0 F 05/18/17 07:30 Pulse 70 05/18/17 07:30 Resp 14 05/18/17 07:30 BP 115/60 05/18/17 07:30 Pulse Ox 100 05/18/17 07:30 - Exam Narrative exam: MSE: Appearance: calm, but evasive Behavior: regular eye contact Speech: regular rate and tone Mood: agitated Affect: dysphoric Thought Process: circumstantial Thought Content: denies SI/HI's and AVH's, disorganized Motor Activity: lying in bed Cognition: A/O x3 Insight: poor Judgment: poor l Assessment and Plan Impression: Unspecified Psychotic DO. Today patient is calm, but evasive during the assessment. CK 623, other labs WNL. Per the record - He has a history of sexually aggressive behavior in 10/2016. DDx: Schizophrenia, R/O Bipolar, R/O Catatonia Recommendation/Plan: Continue 1013 with placement to inpatient psy services. Continue Zyprexa 15 mg PO HS for psychosis. Continue Ativan 2mg IM PRN q4 hours but use carefully. Sedation may promote immobility. Methods Study Analyst involvement patient will need placement if he isn't transferred to a inpatient psy facility.
[2017-05-18] MEDS: BENADRYL PO SCH (22:05)
[2017-05-19] MEDS: KEPPRA PO SCH ×2 (10:06→21:36)
--- NOTE | 2017-05-19 15:16 | Progress Note ---
Subjective - Reason for Consult Reason for consult: disorganized on admission Mental Status Exam - Vital signs Last Vital Signs Temp 98.4 F 05/19/17 09:08 Pulse 53 L 05/19/17 09:08 Resp 12 05/19/17 09:08 BP 108/58 05/19/17 09:08 Pulse Ox 99 05/19/17 09:08 Assessment and Plan Clinical examination, patient was fairly organized. Patient and I were able to call his mother over the phone. He requested for her to take him back in her home; however, she refused. She noted that she wanted him to engage with the act team and find appropriate housing. Given his chronic nonadherence to medications, she is reluctant to have him back in the home. I did discuss this matter with the patient and at the current time we would like the act team to get involved and work with child protective services social worker at [facility] to facilitate appropriate disposition. General Appearance: casually dressed, no acute distress Sensorium/Consciousness: alert and responding to external stimuli; clear Orientation: person, place, time and situation Eye Contact: fair Attitude / Behavior: cooperative Psychomotor & Musculoskeletal Activity: WNL Mood: ok Affect: constricted, limited range Speech / Language: fluent, with normal rate/rhythm/tone Thought Processes: organized, logical, linear Thought Content: no SI/HI Perception: no AVH Insight: limited Judgement: limitied Capacity for ADLs: independent Plan: -Rescind 1013, he no longer meets criteria -Consult 911 emergency services dispatcher to facilitate disposition by contacting his ACT team ( info noted in the previous day's note) -Continue zyprexa, keppra and benadryl upon discharge -Provide the ACT team with the treatment information at the time of discharge.
[2017-05-19] MEDS: BENADRYL PO SCH (21:35)
--- NOTE | 2017-05-19 22:09 | Event Note ---
Date: 05/19/17 Patient is a 22-year-old male who is 1013 has been rescinded by psychiatry. He will follow up at the shelters. I will write his prescriptions for Zyprexa, Keppra and Benadryl per psychiatry's recommendation. Patient has no suicidal or homicidal ideation. He expresses clear goal directed behavior. Additional verbal discharge instructions were given.
[2017-05-19 22:21] VITALS: BP 132/79
== END 2017-05-19 22:22 ==
LOC: EEVIPCON 03:41 → ED 03:41
DX: F39 Unspecified mood [affective] disorder (principal); R56.9 Unspecified convulsions; F12.10 Cannabis abuse, uncomplicated; F14.10 Cocaine abuse, uncomplicated; F17.200 Nicotine dependence, unspecified, uncomplicated; Z88.8 Allergy status to other drugs, medicaments and biological substances
CPT/HCPCS: 36415; 70450; 80048; 80307; 81001; 82550; 85025; 96360; 96361; 96372; 99284; G0480; J2060; J3486; J7030; 80074; 80320; 82607; 82747; 84443; 86592; 87806; Q0161